=== PATIENT | male | born 1975 | race Caucasian/White ===

== ENCOUNTER → 2023-10-05 08:13 | Outpatient (REF) | payer BC, SELFPAY | LOC: DHSLP 08:13 | PROVIDERS: ATTENDING PHYSICIAN Internal Medicine; FAMILY PHYSICIAN Family Medicine | DX: G47.19 Other hypersomnia (principal); R06.83 Snoring | CPT/HCPCS: 95810 ==

== ENCOUNTER → 2023-11-28 | Outpatient (REF) | payer BC, SELFPAY | LOC: DHSLP | PROVIDERS: ATTENDING PHYSICIAN Internal Medicine; FAMILY PHYSICIAN Family Medicine | DX: G47.33 Obstructive sleep apnea (adult) (pediatric) (principal) | CPT/HCPCS: 95800 ==

== ENCOUNTER 2024-01-04 01:20 | Emergency (ER) | payer BC, SELFPAY ==
[2024-01-04 01:37] VITALS: BP 117/83
--- NOTE | 2024-01-04 03:11 | ED.GENMED ---
History of Present Illness
<JACK Santos - Last Filed: 01/04/24 05:20>
General
Chief Complaint: Facial Problem
Source: patient
Time Seen by Provider: 01/04/24 03:04
Travel History
Have you had any contact with someone who has COVID-19?: No
Do you have any symptoms of coronavirus? Fever > 100 degrees, chills, cough, shortness of breath, sore throat, loss of taste or smell, muscle aches, or headache?: No
History of Present Illness
History of Present Illness:
48 year old male with hx of prehypertension who presents with laceration to chin that occurred just prior to arrival. Pt states he was a hockey game when a hockey puck struck him on the chin. He sustained a laceration. States he dropped to his knees
in shock. Denies dizziness, head ache, hitting his head on the floor, vision changes, LOC. Pt was ambulatory after. Pt closed wound with butterfly bandage. Tetanus UTD.
Tetanus UTD.
Review of Systems
<JACK Santos - Last Filed: 01/04/24 05:20>
Review of Systems
Allergies reviewed?: Yes
All Other Systems: ROS reviewed and negative except as documented in HPI and ROS
Constitutional: Reports no symptoms
EENT: Reports no symptoms
Respiratory: Reports no symptoms
Cardiac: Reports no symptoms
ABD/GI: Reports no symptoms
: Reports no symptoms
Musculoskeletal: Reports no symptoms
Skin: Reports other (laceration to chin)
Neurological: Reports no symptoms
Endocrine: Reports no symptoms
Hematologic/Lymphatic: Reports no symptoms
Psychiatric: Reports no symptoms
Phy Exam
<JACK Santos - Last Filed: 01/04/24 05:20>
General Physical Exam
General Presentation: well appearing and no apparent distress
General age: appears stated age
General Skin: warm and dry
General Habitus: normal
General Mental: alert
General Hydration: appears well hydrated
ENT Exam
Additional ENT: oropharynx normal, no oral trauma
Cardiovascular Exam
Cardiovascular Exam: regular rate/rhythm, no edema, no gallop and no murmur
Pulmonary Exam
Pulmonary Exam: lungs clear, no respiratory distress, no rales, no crackles, no rhonchi, no wheezing and no cough
Neurological Exam
Neurological Exam: alert, oriented x3 and CN II-XII intact
Skin Exam
Skin Exam: laceration (1.5 cm, middle chin just above the mentolabial crease, no active bleeding, no foreign body)
Psychiatric Exam
Psychiatric Exam: normal mood/affect
Course
<JACK Santos - Last Filed: 01/04/24 05:20>
Vital Signs
Initial and Last Documented VS:
Initial Vital Signs
Temp Pulse Resp BP Pulse Ox
98.1 F 67 16 117/83 97
01/04/24 01:37 01/04/24 01:37 01/04/24 01:37 01/04/24 01:37 01/04/24 01:37
Last Documented Vital Signs
Temp Pulse Resp BP Pulse Ox
98.1 F 67 16 117/83 97
01/04/24 01:37 01/04/24 01:37 01/04/24 01:37 01/04/24 01:37 01/04/24 01:37
<Chris Palafox DO - Last Filed: 01/04/24 03:26>
Vital Signs
Initial and Last Documented VS:
Initial Vital Signs
Temp Pulse Resp BP Pulse Ox
98.1 F 67 16 117/83 97
01/04/24 01:37 01/04/24 01:37 01/04/24 01:37 01/04/24 01:37 01/04/24 01:37
Last Documented Vital Signs
Temp Pulse Resp BP Pulse Ox
98.1 F 67 16 117/83 97
01/04/24 01:37 01/04/24 01:37 01/04/24 01:37 01/04/24 01:37 01/04/24 01:37
<JACK Santos - Last Filed: 01/04/24 05:20>
MDM/Problems Addressed
Differential Diagnosis Includes:
facial laceration
MDM/Problems Addressed:
48 year old male who presents with laceration to upper chin that occurred just prior to arrival.
<JACK Santos - Last Filed: 01/04/24 05:20>
*Critical Care Note
Total Time (30-74mins, 75-104mins- exclusive of procedures): Not Applicable
ED Attending Note
<JACK Santos - Last Filed: 01/04/24 05:20>
-
Portions of this chart may have been created with voice recognition software.� Occasional wrong word or��sound alike� substitutions may have occurred due to the inherent limitations of voice recognition software.
<Chris Palafox DO - Last Filed: 01/04/24 03:26>
ED Attending Note
Patient seen and examined by attending physician: Yes
I performed the substantive portion of visit, reviewed & personally made and approve the management plan that is documented in note by myself or FANY.: Yes
ED Attending Note:
48-year-old male with 1.5 cm facial laceration. He sustained this by taking a hockey puck to the chin. Denies any other injuries. Last tetanus shot was within the last 4 months. Reports no head injury or loss of consciousness. Patient was seen
in conjunction with the PA student. I have reviewed and agree with the history and treatment plan presented. On my independent physical exam, patient is awake, alert, and oriented x3. 1.5 cm facial laceration repaired with Dermabond. Patient
tolerated procedure well. He has several other scars in the area from other hockey injuries. [place]jacent [place]
Discharge Plan
Departure
Patient Disposition: Home (Routine Discharge)
Date of Disposition: 01/04/24
Time of Disposition: 03:25
Patient with high blood pressure during this ER visit?: No
Condition: Good
Discharge Problem:
Facial laceration
Instructions: Laceration Repair With Glue (DC)
Referrals:
Aniket Dinero MD [Active] - As needed
Activity Restrictions/Additional Instructions:
It was a pleasure meeting you and taking part in your care. We hope for your continued healing and wellness.
Please read discharge instructions in their entirety. However, they are for general education and may not describe your exact diagnosis at discharge. Information on your ER visit and medical conditions were discussed with you along with appropriate
follow up information...
If indicated, please take your medications as instructed and indicated on discharge paperwork.
Please schedule a follow up appointment as directed. Call to schedule an appointment
Please return to the emergency department with ANY change in, persisting, or worsening of symptoms. If any of your symptoms do not improve, or persist, or become more severe within 6-12 hours, please return to the emergency department for further
care.
Please return to the emergency department if you develop a headache, neck pain/stiffness, fever greater than 100.4F, chest pain, shortness of breath, persistent nausea, vomiting, slurred speech, difficulty walking, numbness/tingling, weakness, signs
of infection or any other symptoms that are worrisome to you.
If you have any questions or concerns please do not hesitate to call the Hospital at or E-mail me directly at [email or web address]
Interventions
Interventions:
*Risk Screen - Suicide Last Done: 01/04/24 04:01
*General Assessment Last Done: 01/04/24 04:01
*Neglect/Abuse Screening Last Done: 01/04/24 04:04
ED- Fall Risk Assessment Last Done: 01/04/24 04:08
*ED COVID-19 Vaccine History Last Done: 01/04/24 04:08
*Nursing Disposition Last Done: 01/04/24 04:08
ED- Neurological Assessment Last Done: 01/04/24 04:00
ED-Skin Assessment Last Done: 01/04/24 04:00
Discharge Date and Time
Discharge Date/Time: 01/04/24 04:08
Print Language: CITIZEN OF [place]
== END 2024-01-04 04:08 | disposition home or self-care (01) ==
LOC: EMR 01:20
PROVIDERS: EMERGENCY PHYSICIAN Student in an Organized Health Care Education/Training Program; FAMILY PHYSICIAN Family Medicine
DX: S01.81XA Laceration without foreign body of other part of head, initial encounter (principal); W21.220A Struck by ice hockey puck, initial encounter
CPT/HCPCS: 99282; 12011